=== PATIENT | female | born 1995 | race Caucasian/White ===

== ENCOUNTER → 2016-12-18 | Outpatient (CLI) | payer BC, OTHER ==
[2016-12-18 18:47] LABS: Hepatitis B Surface Ag Index 0.07
[2016-12-18 18:52] LABS: Hepatitis B Core IgM Index 0.02
[2016-12-18 19:04] LABS: Hepatitis C Virus IgG Ab Negative (Negative); Hepatitis C Virus IgG Index 0.03
[2016-12-20 07:53] LABS: HIV-1/HIV-2 Ab Screen NONREAC (NON REAC)
[2016-12-20 10:00] LABS: HSV(PCR) Source Blood - EDTA
== END ==
LOC: LABWHC1 17:12
PROVIDERS: ATTEND Family Medicine
DX: F41.1 Generalized anxiety disorder (principal); Z20.2 Contact with and (suspected) exposure to infections with a predominantly sexual mode of transmission
CPT/HCPCS: 36415; 80074; 86780; 87389; 87529

== ENCOUNTER → 2018-11-27 | Outpatient (CLI) | payer BC ==
[2018-11-27 17:35] LABS: Cholesterol 132 mg/dL (0-200); Glucose 82 mg/dL (70-110); Triglycerides <50.0 mg/dL (0.0-149.0); VLDL Calculation 9.98 mg/dL (5.00-40.00)
== END ==
LOC: LABWHC1 11:45
PROVIDERS: ATTEND Internal Medicine
DX: Z00.00 Encounter for general adult medical examination without abnormal findings (principal)
CPT/HCPCS: 36415; 80061; 82947

== ENCOUNTER 2019-07-11 01:05 | Emergency (ER) | payer BC ==
[2019-07-11 01:14] VITALS: BP 137/79; PULSE 89; RESP 18; TEMP 98.1
[2019-07-11] MEDS ORDERED: ACET/COD 300 MG/30 MG STARTER PACK 6 TAB BTL PO STA (01:23)
[2019-07-11] MEDS ORDERED: CLINDAMYCIN 150 MG CAP PO STA (01:26)
--- NOTE | 2019-07-11 01:26 | ED ---
General Adult HPI - General Chief complaint: Dental/Oral Stated complaint: Dental Time Seen by Provider: 07/11/19 01:18 Source: patient, RN notes reviewed, old records reviewed Mode of arrival: ambulatory Limitations: no limitations - History of Present Illness Initial comments: 23-year-old female patient no pertinent past medical history presents to ED wit hcheif complaint dental pain. Patient for that she has had poor dentition, pain in her teeth the last 5 months and has worsened the last few days. Reports that the pain is worse in the left lower molar region. Denies a chance of being . Denies any other complaints. Systemic: Pt denies fatigue, fever/chills, rash. Pt denies weakness, night sweats, weight loss. Neuro: Pt denies headache, visual disturbances, syncope or pre-syncope. HEENT: Pt denies ocular discharge or irritation, otalgia, rhinorrhea, pharyngitis or notable lymphadenopathy. Cardiopulmonary: Pt denies chest pain, SOB, heart palpitations, dyspnea on exertion. Abdominal/GI: Pt denies abdominal pain, n/v/d. : Pt denies dysuria, burning w/ urination, frequency/urgency. Denies new onset urinary or bowel incontinence. MSK: Pt denies myalgia, loss of strength or function in extremities. Neuro: Pt denies new onset weakness, paresthesias. - Related Data Home Medications Medication Instructions Recorded Confirmed Cyanocobalamin [Vitamin B-12] 500 mcg PO BID 04/21/16 04/21/16 Hydrocodone/Acetaminophen [[place] 1 tab PO Q6HR PRN 04/21/16 04/21/16 5-325] Previous Rx's Medication Instructions Recorded Diazepam [Valium] 5 mg PO BID #6 tab 04/19/16 Ibuprofen [Motrin] 600 mg PO Q6HR PRN #20 tab 04/19/16 Clindamycin [Cleocin] 450 mg PO Q8HR 7 Days capsule 07/11/19 Allergies Allergy/AdvReac Type Severity Reaction Status Date / Time milk Allergy Unknown Verified 07/11/19 01:11 Penicillins Allergy Rash/Hives Verified 07/11/19 01:11 Review of Systems ROS Statement: Those systems with pertinent positive or pertinent negative responses have been documented in the HPI. ROS Other: All systems not noted in ROS Statement are negative. Past Medical History Past Medical History: No Reported History History of Any Multi-Drug Resistant Organisms: None Reported Past Surgical History: Ear Surgery Additional Past Surgical History / Comment(s): left eye surgery, Past Psychological History: Anxiety, Depression Smoking Status: Current every day smoker Past Alcohol Use History: None Reported Past Drug Use History: None Reported General Exam - General Exam Comments Initial Comments: Constitutional: NAD, AOX3, Pt has pleasant affect. HEENT: NC/AT, trachea midline, neck supple, no lymphadenopathy. Posterior pharynx non erythematous, without exudates. External ears appear normal, without discharge. Mucous membranes moist. Eyes PERRLA, EOM intact. There is no scleral icterus. No pallor noted. Poor dentition noted, dental caries noted, mild erythema left lower molar region. No drainable abscess. No fluid collection. Cardiopulmonary: RRR, no murmurs, rubs or gallops, no JVD noted. Lungs CTAB in anterior and posterior pavon. No peripheral edema. Abdominal exam: Abdomen soft and non-distended. Abdomen non-tender to palpation in all 4 quadrants. Bowel sounds active in LLQ. No hepatosplenomegaly. No ecchymosis Neuro: CN II-XII grossly intact. No nuchal rigidity. No raccon eyes, no noe sign, no hemotympanum. No cervical spinal tenderness. MSK: No posterior calf tenderness bilaterally, homans sign negative bilaterally. Posterior tibialis and radial pulse +2 bilaterally. Sensation intact in upper and lower extremities. Full active ROM in upper and lower extremities, 5/5 stregnth. Limitations: no limitations Course Vital Signs 07/11/19 01:11 Temperature 98.1 F Pulse Rate 89 Respiratory 18 Rate Blood Pressure 137/79 O2 Sat by Pulse 96 Oximetry Medical Decision Making - Medical Decision Making 23-year-old female patient presents to ED for chief complaint of dental pain. Patient will signs are stable, afebrile. Physical exam displayed poor dentition, small amount of erythema around left lower molar region. Patient denies any chance of being . Due to penicillin allergy patient will be discharged with clindamycin, also patient follow up with dentist. Case discussed with Dr. Blount. Disposition Clinical Impression: Pain, dental Disposition: HOME SELF-CARE Condition: Stable Instructions (If sedation given, give patient instructions): Toothache (ED) Additional Instructions: Follow-up with primary care provider and dentist tomorrow. Take antibiotics as directed. Return to ER if condition worsens. Prescriptions: Clindamycin [Cleocin] 450 mg PO Q8HR 7 Days capsule Is patient prescribed a controlled substance at d/c from ED?: No Referrals: Maksim Barnett MD [Primary Care Provider] - 1-2 days Trista Cabrera DDS [STAFF PHYSICIAN] - 1-2 days Froylan Dolan DDS [STAFF PHYSICIAN] - 1-2 days Chelo Ochoa DDS [STAFF PHYSICIAN] - 1-2 days
== END 2019-07-11 01:50 | disposition home or self-care (01) ==
LOC: EC 01:05
DX: K08.89 Other specified disorders of teeth and supporting structures (principal); F17.200 Nicotine dependence, unspecified, uncomplicated; Z88.0 Allergy status to penicillin; Z91.011 Allergy to milk products
CPT/HCPCS: 99283

== ENCOUNTER 2019-07-24 14:13 | Emergency (ER) | payer BC ==
--- NOTE | 2019-07-24 15:02 | ED ---
URI HPI - General Chief Complaint: Upper Respiratory Infection Stated Complaint: Cough Time Seen by Provider: 07/24/19 14:55 Source: patient Mode of arrival: ambulatory Limitations: no limitations - History of Present Illness Initial Comments: Patient is a 24-year-old female presenting to the emergency Department with complaints of a cough that has been ongoing for the past month. Patient states her PCP put her on amoxicillin about 2 weeks ago without improvement in her symptoms. Patient states the last 2 days her symptoms have worsened. She is c oughing a lot more and is not able to sleep. She has bodyaches and some mild shortness of breath when she attempts to do things around the house. She has no history of asthma. There are no other complaints at this time. Upon arrival to the ER, vital signs are stable. - Related Data Home Medications Medication Instructions Recorded Confirmed Cyanocobalamin [Vitamin B-12] 500 mcg PO BID 04/21/16 04/21/16 Hydrocodone/Acetaminophen [[place] 1 tab PO Q6HR PRN 04/21/16 04/21/16 5-325] Previous Rx's Medication Instructions Recorded Diazepam [Valium] 5 mg PO BID #6 tab 04/19/16 Ibuprofen [Motrin] 600 mg PO Q6HR PRN #20 tab 04/19/16 Clindamycin [Cleocin] 450 mg PO Q8HR 7 Days capsule 07/11/19 Azithromycin [Zithromax Z-pack] 0 mg PO DIRECTED #1 pack 07/24/19 methylPREDNISolone [Medrol Dose 4 mg PO DIRECTED #1 pack 07/24/19 Pack] Allergies Allergy/AdvReac Type Severity Reaction Status Date / Time milk Allergy Unknown Verified 07/24/19 14:53 Penicillins Allergy Rash/Hives Verified 07/24/19 14:53 Review of Systems ROS Statement: Those systems with pertinent positive or pertinent negative responses have been documented in the HPI. ROS Other: All systems not noted in ROS Statement are negative. Past Medical History Past Medical History: No Reported History History of Any Multi-Drug Resistant Organisms: None Reported Past Surgical History: Ear Surgery Additional Past Surgical History / Comment(s): left eye surgery, Past Psychological History: Anxiety, Depression Smoking Status: Current every day smoker Past Alcohol Use History: None Reported Past Drug Use History: None Reported General Exam - General Exam Comments Initial Comments: GENERAL: Patient appears fatigued, teary eye on exam, coughing a lot HEAD: Atraumatic, normocephalic. EYES: Pupils equal round and reactive to light, extraocular movements intact, sclera anicteric, conjunctiva are normal. ENT: TMs normal, nares patent, oropharynx clear without exudates. Moist mucous membranes. NECK: Normal range of motion, supple without lymphadenopathy or JVD. LUNGS: Mild scattered wheezes, no rales or rhonchi. HEART: Regular rate and rhythm without murmurs, rubs or gallops. ABDOMEN: Soft, nontender, normoactive bowel sounds. No guarding, no rebound. No masses appreciated. : Deferred EXTREMITIES: Normal range of motion, no pitting or edema. No clubbing or cyanosis. NEUROLOGICAL: Normal speech, normal gait. PSYCH: Normal mood, normal affect. SKIN: Warm, Dry, normal turgor, no rashes or lesions noted. Limitations: no limitations Course Vital Signs 07/24/19 07/24/19 07/24/19 14:50 15:59 16:30 Temperature 99.3 F 101.1 F H Pulse Rate 102 H 86 Respiratory 18 21 18 Rate Blood Pressure 131/79 132/88 O2 Sat by Pulse 100 99 Oximetry Medical Decision Making - Medical Decision Making Patient is a 24-year-old female presenting with cough for 1 month with symptoms worsening the last 2 days. Vital signs are stable. Chest x-ray shows left upper lobe pneumonia. Influenza is negative. I discussed these findings with the patient. Patient will be started on azithromycin as well as a short course of steroids. Patient does have an inhaler at home that she can use for shortness of breath and cough. She is in agreement with this plan of care. She is stable for discharge at this time. Case discussed with Dr. Rios. - Lab Data Lab Results 07/24/19 Range/Units 15:15 Influenza Type A RNA Not Detected (Not Detectd) Influenza Type B (PCR) Not Detected (Not Detectd) Disposition Clinical Impression: Pneumonia Disposition: HOME SELF-CARE Condition: Stable Instructions (If sedation given, give patient instructions): Pneumonia (ED) Additional Instructions: Please return to the Emergency Department if symptoms worsen or any other concerns. Take antibiotic as prescribed. Follow-up with PCP in one week. Prescriptions: methylPREDNISolone [Medrol Dose Pack] 4 mg PO DIRECTED #1 pack Azithromycin [Zithromax Z-pack] 0 mg PO DIRECTED #1 pack Is patient prescribed a controlled substance at d/c from ED?: No Referrals: Maksim Barnett MD [Primary Care Provider] - 1-2 days
--- NOTE | 2019-07-24 15:56 | XR ---
EXAMINATION TYPE: XR chest 2V DATE OF EXAM: 07/24/2019 COMPARISON: 12/20/2015 HISTORY: Chest pain TECHNIQUE: FINDINGS: There is some patchy airspace infiltrate left upper lobe. There is no heart failure. Right lung is clear. There is no pleural effusion. Bony thorax is intact. IMPRESSION: Left upper lobe pneumonia is new compared to old exam. Normal heart.
[2019-07-24 16:30] VITALS: BP 132/88; PULSE 86; RESP 18; TEMP 101.1
== END 2019-07-24 16:31 | disposition home or self-care (01) ==
LOC: EC 14:13
DX: J18.9 Pneumonia, unspecified organism (principal); F17.200 Nicotine dependence, unspecified, uncomplicated; Z88.0 Allergy status to penicillin; Z91.011 Allergy to milk products
CPT/HCPCS: 71046; 87502; 99283

== ENCOUNTER 2020-06-17 16:47 | Observation (INO) | payer BC ==
[2020-06-17] MEDS ORDERED: SODIUM CHLORIDE 0.9% 1,000 ML IV STA (16:52)
--- NOTE | 2020-06-17 16:59 | ED ---
Seizure HPI - General Stated Complaint: seizure Time Seen by Provider: 06/17/20 16:47 Source: patient, EMS, RN notes reviewed, old records reviewed Mode of arrival: EMS - History of Present Illness Initial Comments: This is a 24-year-old female with a benign history with respect to seizure or heart disease who is brought in by EMS after apparently suffering a seizure lasting 30-60 seconds prior to arrival. She was noted have left upper lower extremity neuro deficits. She states she felt palpitations in her chest prior to the episode she called for her boyfriend and everything apparently started. No further activity. She now has some movement to her left hand which she did not earlier. No drugs or alcohol reported no fevers chills nausea vomiting sweats. Her last menstrual period was one week ago. She does have a history of left cataract surgery. She doesn't recall when. The patient has no headache no blurry vision no recent illnesses to report No other complaints or modifying factors at this time MD Complaint: seizure - Related Data Home Medications Medication Instructions Recorded Confirmed Cyanocobalamin [Vitamin B-12] 500 mcg PO BID 04/21/16 04/21/16 Hydrocodone/Acetaminophen [[place] 1 tab PO Q6HR PRN 04/21/16 04/21/16 5-325] Previous Rx's Medication Instructions Recorded Ibuprofen [Motrin] 600 mg PO Q6HR PRN #20 tab 04/19/16 diazePAM [Valium] 5 mg PO BID #6 tab 04/19/16 Clindamycin [Cleocin] 450 mg PO Q8HR 7 Days capsule 07/11/19 Azithromycin [Zithromax Z-pack (6 0 mg PO DIRECTED #1 pack 07/24/19 tabs)] methylPREDNISolone [Medrol Dose 4 mg PO DIRECTED #1 pack 07/24/19 Pack] Allergies Allergy/AdvReac Type Severity Reaction Status Date / Time milk Allergy Unknown Verified 07/24/19 14:53 Penicillins Allergy Rash/Hives Verified 07/24/19 14:53 Review of Systems ROS Statement: Those systems with pertinent positive or pertinent negative responses have been documented in the HPI. ROS Other: All systems not noted in ROS Statement are negative. Past Medical History Past Medical History: No Reported History History of Any Multi-Drug Resistant Organisms: None Reported Past Surgical History: Ear Surgery Additional Past Surgical History / Comment(s): left eye surgery, Past Psychological History: Anxiety, Depression Past Alcohol Use History: None Reported Past Drug Use History: None Reported General Exam - General Exam Comments Initial Comments: This is a well-developed well-nourished awake alert oriented 3 female Limitations: physical limitation General appearance: alert, anxious Head exam: Present: atraumatic, normocephalic, normal inspection Eye exam: Present: normal appearance, PERRL, EOMI. Absent: scleral icterus, conjunctival injection, periorbital swelling Pupils: Present: other (Left pupil is dilated compared to the right) ENT exam: Present: normal exam, mucous membranes moist Neck exam: Present: normal inspection, full ROM, other (No stridor JVD or bruits). Absent: tenderness, meningismus, lymphadenopathy Respiratory exam: Present: normal lung sounds bilaterally. Absent: respiratory distress, wheezes, rales, rhonchi, stridor Cardiovascular Exam: Present: regular rate, normal rhythm, normal heart sounds. Absent: systolic murmur, diastolic murmur, rubs, gallop, clicks GI/Abdominal exam: Present: soft, normal bowel sounds. Absent: distended, tenderness, guarding, rebound, rigid Extremities exam: Present: normal inspection, normal capillary refill. Absent: full ROM (Left upper extremity hemiparesis left lower extremity hemiplegia), tenderness, pedal edema, joint swelling, calf tenderness Back exam: Present: normal inspection Neurological exam: Present: alert, oriented X3, CN II-XII intact, motor sensory deficit, other (Decreased sensation of both extremities) Psychiatric exam: Present: normal affect, normal mood Skin exam: Present: warm, dry, intact, normal color. Absent: rash Course Vital Signs 06/17/20 17:03 Temperature 98.2 F Pulse Rate 86 Respiratory 18 Rate Blood Pressure 137/91 O2 Sat by Pulse 99 Oximetry - Reevaluation(s) Reevaluation #1: 06/17/20 18:14 Reevaluation patient by she's had increased mobility to her left upper and lower extremities. Medical Decision Making - Lab Data Result diagrams: 06/17/20 17:00 06/17/20 17:00 Lab Results 06/17/20 06/17/20 06/17/20 Range/Units 17:00 17:00 17:00 WBC 7.5 (3.8-10.6) k/uL RBC 4.26 (3.80-5.40) m/uL Hgb 13.8 (11.4-16.0) gm/dL Hct 39.7 (34.0-46.0) % MCV 93.2 (80.0-100.0) fL MCH 32.4 (25.0-35.0) pg MCHC 34.8 (31.0-37.0) g/dL RDW 12.5 (11.5-15.5) % Plt Count 296 (150-450) k/uL MPV 6.7 Neutrophils % 77 % Lymphocytes % 17 % Monocytes % 3 % Eosinophils % 1 % Basophils % 1 % Neutrophils # 5.7 (1.3-7.7) k/uL Lymphocytes # 1.3 (1.0-4.8) k/uL Monocytes # 0.3 (0-1.0) k/uL Eosinophils # 0.1 (0-0.7) k/uL Basophils # 0.1 (0-0.2) k/uL D-Dimer 0.60 H (<0.60) mg/L FEU Sodium 140 (137-145) mmol/L Potassium 4.1 (3.5-5.1) mmol/L Chloride 109 H (98-107) mmol/L Carbon Dioxide 22 (22-30) mmol/L Anion Gap 9 mmol/L BUN 8 (7-17) mg/dL Creatinine 0.54 (0.52-1.04) mg/dL Est GFR (CKD-EPI)AfAm >90 (>60 ml/min/1.73 sqM) Est GFR (CKD-EPI)NonAf >90 (>60 ml/min/1.73 sqM) Glucose 111 H (74-99) mg/dL Calcium 9.7 (8.4-10.2) mg/dL Magnesium 1.8 (1.6-2.3) mg/dL Total Bilirubin 0.6 (0.2-1.3) mg/dL AST 30 (14-36) U/L ALT 22 (4-34) U/L Alkaline Phosphatase 71 (38-126) U/L Creatine Kinase 79 (30-135) U/L Total Protein 8.0 (6.3-8.2) g/dL Albumin 4.9 (3.5-5.0) g/dL TSH 1.450 (0.465-4.680) mIU/L Serum Alcohol <10 mg/dL - EKG Data -: EKG Interpreted by Me EKG shows normal: sinus rhythm, axis, intervals, QRS complexes, ST-T waves Rate: normal EKG Comments: EKG shows normal sinus rhythm of 83. We'll 180 QRS duration 98 QT since QTC 390/467 - Radiology Data Radiology results: report reviewed (I did review the imaging and reports no evidence of acute neurological findings no evidence of any vascular obstructions.), image reviewed Critical Care Time Critical Care Time: Yes Total Critical Care Time: 31 Critical Care Time: This includes initial presentation with history physical labs x-rays discussed with paramedics regarding the incident. Multiple reevaluation the patient. Discussed with the patient discussed with Dr. Rivera and documentation of the above and admission orders Disposition Clinical Impression: New onset seizure, Shashank's paralysis (postepileptic) Disposition: [facility] Condition: Fair Referrals: Maksim Barnett MD [Primary Care Provider] - 1-2 days
[2020-06-17 17:14] LABS: Basophils # (A) 0.1 k/uL (0-0.2); Basophils % (A) 1 %; Eosinophils # (A) 0.1 k/uL (0-0.7); Eosinophils % (A) 1 %; HCT 39.7 % (34.0-46.0); HGB 13.8 gm/dL (11.4-16.0); Lymphocytes # (A) 1.3 k/uL (1.0-4.8); Lymphocytes % (A) 17 %; MCH 32.4 pg (25.0-35.0); MCHC 34.8 g/dL (31.0-37.0); MCV 93.2 fL (80.0-100.0); Mean Platelet Volume 6.7; Monocytes # (A) 0.3 k/uL (0-1.0); Monocytes % (A) 3 %; Neutrophils # (A) 5.7 k/uL (1.3-7.7); Neutrophils % (A) 77 %; Platelet Count 296 k/uL (150-450); RBC 4.26 m/uL (3.80-5.40); RDW 12.5 % (11.5-15.5); WBC 7.5 k/uL (3.8-10.6)
[2020-06-17 17:25] LABS: ALT 22 U/L (4-34); AST 30 U/L (14-36); African American GFR (CKD) >90 (>60 ml/min/1.73 sqM); Albumin 4.9 g/dL (3.5-5.0); Alcohol <10 mg/dL; Alkaline Phosphatase 71 U/L (38-126); Anion Gap 9 mmol/L; Blood Urea Nitrogen 8 mg/dL (7-17); Calcium 9.7 mg/dL (8.4-10.2); Carbon Dioxide 22 mmol/L (22-30); Chloride 109 mmol/L (98-107); Creatine Kinase 79 U/L (30-135); Glucose 111 mg/dL (74-99); Magnesium 1.8 mg/dL (1.6-2.3); Non-African American GFR(CKD) >90 (>60 ml/min/1.73 sqM); Potassium 4.1 mmol/L (3.5-5.1); Sodium 140 mmol/L (137-145); Total Bilirubin 0.6 mg/dL (0.2-1.3)
--- NOTE | 2020-06-17 17:28 | XR ---
EXAMINATION TYPE: XR chest 1V portable DATE OF EXAM: 06/17/2020 COMPARISON: 07/24/2019 HISTORY: Palpitations. Seizure. TECHNIQUE: FINDINGS: Heart and mediastinum are normal. Lungs are clear. Diaphragm is normal. Bony thorax appears normal. IMPRESSION: Normal chest. There is clearing of the left upper lobe pneumonia compared to old exam.
--- NOTE | 2020-06-17 17:30 | CT ---
EXAMINATION TYPE: CT brain wo con DATE OF EXAM: 06/17/2020 COMPARISON: 04/19/2016 HISTORY: seizure CT DLP: 1061 mGycm Automated exposure control for dose reduction was used. Ventricles have normal size. There is no mass effect nor midline shift. There is no sign of intracran ial hemorrhage. The calvarium is intact. There is no evidence of cerebral edema. There is previous umanzor rgery on the left mastoid sinus. IMPRESSION: Negative CT scan of the brain. No change compared to old exam.
--- NOTE | 2020-06-17 17:50 | CT ---
EXAMINATION TYPE: CT angio head neck DATE OF EXAM: 06/17/2020 COMPARISON: None HISTORY: seizure CT DLP: 484.3 mGycm Automated exposure control for dose reduction was used. CONTRAST: Performed with IV Contrast, patient injected with 65 mL of Isovue 370. There are 3-D post processed images. There is normal branching pattern of the great vessels on the aortic arch. Ascending aorta measures 3 .1 cm. There is arterial flow in both subclavian arteries. There is arterial flow in the common inter nal and external carotid arteries bilaterally. There is arterial flow in both vertebral arteries. The carotid artery bifurcations are widely patent. There is arterial flow in the vertebrobasilar jennifer ry system. There is arterial flow in the anterior middle and posterior cerebral arteries. I see no ev idence of intracranial aneurysm or neovascularity. There is normal contrast opacification of the veno us sinuses. There is no mass effect. There is no sign of hemodynamic stenosis. There is no evidence o f cerebral edema. IMPRESSION: Normal CT angiogram of the brain. Normal CT angiogram of the neck.
[2020-06-17] MEDS ORDERED: levETIRAcetam IV 1,000 MG in SALINE 1 100ML.BAG IVPB STA (17:58)
[2020-06-17] MEDS ORDERED: NALOXONE 0.4 MG/ML 1 ML VIAL IV PRN (18:18)
[2020-06-17 18:20] LABS: Appearance,Urine Clear (Clear); Bilirubin,Urine Negative (Negative); Blood,Urine Negative (Negative); Color,Urine Light Yellow; Glucose,Urine (UA) Negative (Negative); Ketones,Urine Negative (Negative); Leukocyte Esterase,Urine Negative (Negative); Nitrite,Urine Negative (Negative); PH, Urine 6.5 (5.0-8.0); Protein,Urine Negative (Negative); Specific Gravity,Urine 1.023 (1.001-1.035); Urobilinogen,Urine <2.0 mg/dL (<2.0)
[2020-06-17 18:34] LABS: Amphetamine Screen,Urine Not Detected (NotDetected); Barbiturate Screen,Urine Not Detected (NotDetected); Benzodiazepines Screen,Urine Not Detected (NotDetected); Cocaine Screen,Urine Not Detected (NotDetected); Methadone Screen, Urine Not Detected (NotDetected); Opiate Screen,Urine Not Detected (NotDetected); Oxycodone Screen, Urine Not Detected (NotDetected); Phencyclidine Screen,Urine Not Detected (NotDetected); Tricyclic Antidepressant,Urine Not Detected (NotDetected); Urn Cannabinoid Scrn Not Detected (NotDetected)
[2020-06-17] MEDS ORDERED: KETOROLAC 15 MG/ML 1 ML VIAL IVP STA (19:42)
[2020-06-17] MEDS: SODIUM CHLORIDE 0.9% 1,000 ML IV SCH (20:08)
[2020-06-17] MEDS ORDERED: LORazepam 2 MG/ML INJ IV STA (22:06)
[2020-06-17] MEDS: OXYMETAZOLINE 0.05% NASL SPRAY 1 SPRAY BOTTLE NASAL SCH ×2 (22:07→22:19)
[2020-06-18] MEDS ORDERED: KETOROLAC 15 MG/ML 1 ML VIAL ONE (03:26)
[2020-06-18] MEDS: KETOROLAC 15 MG/ML 1 ML VIAL IVP SCH ×2 (03:28→16:20)
[2020-06-18] MEDS ORDERED: ACETAMINOPHEN TAB 500 MG TAB PO PRN (07:42)
--- NOTE | 2020-06-18 11:17 | EEG ---
ELECTROENCEPHALOGRAM REPORT DATE OF SERVICE: 06/18/2020 PREAMBLE: This is a 24-year-old female with new onset seizure. This study is performed to evaluate for any epileptiform activity. EEG FINDINGS: This is a 21 channel routine EEG recording in a patient utilizing 10-20 international system with referential and bipolar montages. Background consists of well developed, well regulated, moderate voltage activity in 12 hertz alpha. Background is posterior dominant and reactive to eye opening and closing. A lot of eye movement artifacts were seen throughout the study. Hyperventilation revealed no abnormalities. Photic driving response was seen with some flash frequencies. Mild drowsiness was seen, but deeper stages of sleep were not attained. No focal or generalized epileptiform activity was seen. EKG channel showed no arrhythmia. IMPRESSION: This is a normal awake and drowsy EEG. No focal, lateralized, or epileptiform activity was seen. MMODL / IJN: [id number] / MTDD
[2020-06-18] MEDS ORDERED: IBUPROFEN 800 MG TAB PO PRN (12:09)
[2020-06-18] MEDS ORDERED: busPIRone HCl 5 MG TAB PO PRN (12:10)
--- NOTE | 2020-06-18 13:32 | P.CNNES ---
History of Present Illness Consult date: 06/18/20 Requesting physician: Hermes Laboy Reason for Consult: New onset seizure History of Present Illness: Patient is a 24-year-old female, came to the hospital yesterday at 4:47 PM by ambulance for seizure. Patient has no previous history of seizures or heart disease. Patient apparently had a seizure lasting 30-60 seconds prior to arrival. She was noted to have left upper and lower extremity neuro deficits. Patient tells me that she does not remember much of details yesterday prior to her seizure. She remembers waking up yesterday morning at 4 AM. She remembers going to work but was sent home, as she was not needed at work. She went to her sister's house where she had a cup of coffee. She went back home. Then she does not remember details. Apparently her boyfriend called the ambulance. Patient does remember that her heart was feeling "funky", which she describes as her "heart pounding more than it should". Patient was noted to have left-sided weakness in the ER. Her vital signs on arrival was blood pressure 137/91, pulse rate 86 temperature 98.2. Chest x-ray showed was normal. There is clearing of the left upper lobe pneumonia compared to old exam. CT head negative. CTA of head and neck normal. EKG showed sinus rhythm with sinus arrhythmia. Blood test shows normal CBC, electrolytes, renal function hepatic panel, TSH and UA. Urine drug screen negative and blood alcohol level negative. Patient takes vitamin D at home. Patient states that she has history of cataract removal in the left eye, and also had glaucoma. Patient states her mother and sister has "blackout seizures". She believes her sister is being treated with medication, but mother is not. She describes her blackout seizures as "passing out with little shaking". Patient has 1 child, 6 years old. She denies any excessive stresses although does feel very tired. She has smoked 1 pack per day since she was age 13. She denies any alcohol or drugs or marijuana use. She works at [employer]. Review of Systems Patient denies headache, double vision or loss of vision. She does have chronic issues with her left eye. Denies any slurred speech or dysphagia. Denies abdominal pain, nausea vomiting diarrhea. Patient complains of weakness and numbness of the left side. Complains of some palpitations previously. Denies chest pain shortness of breath. Patient does feel depressed. All other review of systems unremarkable. Past Medical History Past Medical History: No Reported History Additional Past Medical History / Comment(s): nerve damage bilat fee, glaucoma and cataract in left eye, alopecia History of Any Multi-Drug Resistant Organisms: None Reported Past Surgical History: Ear Surgery Additional Past Surgical History / Comment(s): left eye surgery, Past Anesthesia/Blood Transfusion Reactions: No Reported Reaction Past Psychological History: Anxiety, Depression Smoking Status: Current every day smoker Past Alcohol Use History: None Reported Past Drug Use History: None Reported Medications and Allergies Home Medications Medication Instructions Recorded Confirmed Type Ergocalciferol [Vitamin D2] 50,000 unit PO MO 06/17/20 06/17/20 History Allergies Allergy/AdvReac Type Severity Reaction Status Date / Time milk Allergy Unknown Verified 06/17/20 18:30 Penicillins Allergy Rash/Hives Verified 06/17/20 18:30 Physical Examination - Vital Signs Vital Signs: Vital Signs Temp Pulse Pulse Resp BP BP Pulse Ox 06/18/20 08:00 97.0 F L 72 18 120/76 98 06/18/20 05:00 65 18 06/18/20 04:00 98.7 F 65 18 123/88 98 06/18/20 03:00 97.9 F 72 14 127/88 98 06/17/20 22:02 79 18 142/91 97 06/17/20 18:32 71 18 123/88 98 06/17/20 17:03 98.2 F 86 18 137/91 99 Intake and Output 06/17/20 06/18/20 06/18/20 22:59 06:59 14:59 Other: Voiding Method Toilet Bedpan Weight 86.183 kg On examination patient is a young female, who is very tearful, crying for no reason. She appears depressed. Her speech and language functions are normal. No aphasia or dysarthria. Attention and concentration and fund of knowledge is adequate. On cranial nerve examination her right pupil is round and reacting. Her left pupil is surgical, very dilated, irregular and nonreactive. Visual pavon are full on confrontation. Extraocular muscles are intact with no nystagmus. Face is symmetric, tongue protrudes to the midline, p alatal elevation and sensation normal hearing and shoulder shrug normal. On muscle strength testing the strength is normal in the right arm and right leg. She is diffusely weak about 3+ to 4 in the left arm proximally and distally. Likewise she is very weak distally and proximally in the left lower limb. Reflexes are 1+ and plantars are downgoing bilaterally. Sensory touch produces tingling in the left side of the body. No ataxia for [id number] on the right, cannot perform it on the left. Tone and bulk of muscles normal. Gait deferred. On general examination, there is no carotid bruit, or murmur, S1 and S2 audible, abdomen soft nontender, chest is clear, no peripheral edema. Results - Laboratory Findings CBC and BMP: 06/17/20 17:00 06/17/20 17:00 Abnormal Lab Findings: Abnormal Labs 06/17/20 06/17/20 17:00 17:00 D-Dimer 0.60 H Chloride 109 H Glucose 111 H Assessment and Plan Assessment: * New onset seizure versus syncope. * New onset left hemiparesis, rule out post ictal Shashank's paralysis, CVA versus conversion disorder. * History of left eye cataract surgery and glaucoma. * Tobacco use Plan: * Patient had an EEG performed today, which is normal. No epileptiform activity was seen. * No indication for antiepileptic medication, as this was a first event, and uncertain if it was seizure or syncope. * Stat MRI of the brain to rule out CVA or mass lesion. * Consider cardiac workup, if above neurological workup comes back negative. * Patient informed of [place] state law of no driving, unless seizure free for 6 months, climbing ladders, operate dangerous machinery or unsupervised s wimming. * We will follow. Addendum: MRI of the brain with and without contrast was normal. No evidence of acute stroke or demyelinating disease. EEG was normal. Left hemiparesis uncertain if ? Post ictal Shashank's versus conversion disorder. Patient has been very tearful, crying. Suggest psychiatry consultation to rule out conversion disorder.
--- NOTE | 2020-06-18 14:19 | MR ---
EXAMINATION TYPE: MR brain wo/w con DATE OF EXAM: 06/18/2020 COMPARISON: CT brain yesterday. HISTORY: Left side weakness. Seizure on admission yesterday. TECHNIQUE: Multiplanar, multisequence images of the brain and brainstem is performed without and with IV contras t, utilizing 8.5 mL intravenous Gadavist . FINDINGS: Diffusion weighted images demonstrate no evidence of a recent infarct or other diffusion ab normality. There is no extra-axial fluid collection or significant white matter signal abnormality. The ventricular system and cisternal spaces are normal in size and appearance. The brain volume is age appropriate. Midline structures demonstrate normal morphology. The craniocervical junction appears within normal limits. Post contrast images demonstrate no abnormal enhancement. The dural venous sinuses appear pa tent. Mild to moderate mucosal thickening in the left maxillary sinus. [id number] mucosal thick ening in ethmoid sinuses bilaterally. Mild mucosal thickening of bilateral frontal sinuses. Some depe ndent fluid in the left sphenoid sinus with mild mucosal thickening anteriorly. Left lens is not well seen. Correlate clinically. Increased signal corresponding to prior surgery at level of left mastoid is noted. IMPRESSION: No MRI evidence for a recent infarct. No significant white matter changes. No suspicious postcontrast enhancement.
[2020-06-18] MEDS: OXYMETAZOLINE 0.05% NASL SPRAY 1 SPRAY BOTTLE NASAL SCH (15:02)
[2020-06-18] MEDS: SODIUM CHLORIDE 0.9% 1,000 ML IV SCH (16:42)
[2020-06-18] MEDS ORDERED: BUTALB/APAP/CAFF 50-325-40MG TAB PO PRN (17:17)
[2020-06-18] MEDS ORDERED: SODIUM CHLORIDE 0.65% NASAL SPRAY 44 ML BTL NASAL PRN (17:29)
--- NOTE | 2020-06-18 17:53 | HP ---
HISTORY AND PHYSICAL CHIEF COMPLAINT: Seizure and left hemiparesis. HISTORY OF PRESENT ILLNESS: This is the first known admission for this 24-year-old white female. She was brought to the emergency room after she apparently had a grand mal seizure and presented with left upper and left lower extremity weakness which slowly was receding while she was in the emergency room. She had no headache, diplopia, etc. She has had no history of head injury, meningitis, previous seizures, etc. She denies drug use. She denies stress. She did not have incontinence of stool or urine. REVIEW OF SYSTEMS: She has had no change in the vision or hearing, chest pain, shortness of breath, cough, hemoptysis, hypertension, murmurs, rheumatic fever, orthopnea, PND, abdominal pain, nausea, vomiting, hematemesis, melena, hematochezia, jaundice, hepatitis, cirrhosis, hematuria frequency, urgency, incontinence, renal failure, diabetes, etc. She has had no history of migraines. Past medical history, family history, and personal and social histories reveal that she is ALLERGIC to PENICILLIN and she only uses a Symbicort inhaler occasionally. She has had some problems with anxiety and depression in the past. She does smoke. She does not drink. She has a negative family history for seizures. PHYSICAL EXAMINATION: Blood pressure 118/70, pulse 82, respirations of 18. She is afebrile. In general she appeared to be well developed, well nourished, and in no acute distress, but she was anxious. Head, ears, eyes, nose, mouth and throat were normal. Neck veins were not distended. Thyroid was not enlarged. The chest was clear. Cardiac exam was normal. Abdomen was soft, nontender. Extremities were normal. Cranial nerves were intact. Neck was supple. Pupils were equal, round and reactive and gaze was conjugate. She did have some residual weakness in the left upper and left lower extremities. She is admitted to the hospital with the diagnosis: New grand mal seizure disorder with left hemiparesis. PLAN: 1. Bedrest. 2. IV fluids. 3. Frequent monitoring of her neurologic status and vital signs. 4. Neurology consult. 5. MRI with gadolinium. 6. Consider further workup pending outcome of first studies. MMODL / IJN: [id number] /
[2020-06-18] MEDS ORDERED: ERGOCALCIFEROL 50,000 UNIT CAP PO SCH (18:00)
[2020-06-18] MEDS ORDERED: traZODone HCL 50 MG TAB PO PRN (19:08)
[2020-06-19 05:20] VITALS: RESP 16
[2020-06-19 07:56] VITALS: BP 106/61; PULSE 73; TEMP 97.7
--- NOTE | 2020-06-19 18:34 | PN ---
PROGRESS NOTE DATE OF SERVICE: 06/18/2020 CHIEF COMPLAINT: Left hemiparesis and seizure. HISTORY OF PRESENT ILLNESS: This lady is doing well. She is really completely recovered neurologically. She has been seen by Neurology. All studies have been negative so far. PHYSICAL EXAMINATION: Right pupil is normal. The left is surgically altered. Chest is clear. Cardiac exam is normal. Abdomen is soft, nontender. Neurologically she is back intact. IMPRESSION: New-onset seizure with left hemiparesis. PLAN: Progress activity and diet. Under the circumstances, it looks as though that this may not be a vargas haydee seizure. MMODL / IJN: [id number] /
--- NOTE | 2020-06-19 18:53 | P.PN ---
Subjective Progress Note Date: 06/19/20 Late entry Patient was seen earlier before her discharge. Patient appeared more comfortable, less teary-eyed. States her left-sided getting better. Numbness has resolved and weakness is also improved Objective - Vital Signs Vital signs: Vital Signs Temp 97.7 F 06/19/20 07:55 Pulse 73 06/19/20 07:55 Resp 16 06/19/20 08:00 BP 106/61 06/19/20 07:55 Pulse Ox 98 06/19/20 07:55 Intake & Output 06/18/20 06/19/20 06/19/20 18:59 06:59 18:59 Intake Total 357 240 Output Total 1600 Balance 357 -1360 Weight 87.5 kg Intake: Oral 357 240 Output: Urine 1600 Other: Voiding Method Bedpan Bedpan Bedpan # Voids 1 2 # Bowel Movements 0 - Exam Patient states that she can move her left arm and left leg better. However showing me only that she can wiggle her toes and hands and feet. However on checking, she appears to be fairly normal strength about 5-to 4+. Very inconsistent response suggestive of functional weakness pattern. Sensations are equal bilaterally. Tone and bulk of muscles normal. No Babinski's - Labs CBC & Chem 7: 06/17/20 17:00 06/17/20 17:00 Assessment and Plan Assessment: * New onset seizure versus syncope. * New onset left hemiparesis, probable conversion disorder. * History of left eye cataract surgery and glaucoma. * Tobacco use Plan: * EEG was normal. No epileptiform activity was seen. * No indication for antiepileptic medication, as this was a first event, and uncertain if it was seizure or syncope. * MRI of brain with and without contrast normal. No evidence of acute CVA or demyelinating disease. * Consider cardiac workup, if above neurological workup comes back negative. * Patient informed of [place] state law of no driving, unless seizure free for 6 months, climbing ladders, operate dangerous machinery or unsupervised swimming. * Neurologically clear for discharge.
--- NOTE | 2020-06-19 19:34 | DS ---
DISCHARGE SUMMARY CHIEF COMPLAINT: Seizure and left hemiparesis. HISTORY OF PRESENT ILLNESS AND PHYSICAL EXAMINATION: Details of this lady's history and physical can be found in the initial workup. LABORATORY STUDIES: While she was in the hospital she had laboratory studies, details of which can be found in the laboratory section of her chart. COURSE IN THE HOSPITAL: After admission she was placed on bedrest, started on intravenous fluids and seizure precautions. She was seen by Neurology. MRI was normal, as was her CT. She fully recovered while in the hospital. Her EEG was normal. There was a question as to whether or not this was a real event. She was stable and it was felt that she could go home. She will go home on her usual diet, activity and no medication, and she will be followed up in the office. FINAL DIAGNOSIS: Seizure and left hemiparesis. OPERATIONS: None. CONSULTATION: Neurology. She is improved. MMLAQUITAL / RAYMOND: [id number] /
[2020-06-21] MEDS ORDERED: IBUPROFEN 800 MG TAB PO PRN (09:00)
== END 2020-06-19 14:55 | disposition home or self-care (01) ==
LOC: EC 16:47 → 3SCARD 18:18
PROVIDERS: ADMIT Family Medicine; ATTEND Family Medicine
DX: G40.409 Other generalized epilepsy and epileptic syndromes, not intractable, without status epilepticus (principal); G81.94 Hemiplegia, unspecified affecting left nondominant side; R00.2 Palpitations; F32.9 Major depressive disorder, single episode, unspecified; F41.9 Anxiety disorder, unspecified; H40.9 Unspecified glaucoma; F17.210 Nicotine dependence, cigarettes, uncomplicated; L65.9 Nonscarring hair loss, unspecified; Z79.51 Long term (current) use of inhaled steroids; Z88.0 Allergy status to penicillin; Z91.011 Allergy to milk products; Z87.01 Personal history of pneumonia (recurrent); Z98.890 Other specified postprocedural states; Z98.42 Cataract extraction status, left eye
CPT/HCPCS: 96376; 96365; 96375; 99291; 36415; 95816; 93005; 85379; 80053; 84443; 82550; 83735; 85025; 81003; 81025; 80306; 80320; 71045; 70496; 70450; 70498; 70553; G0378 ×3; J2060; J1885 ×2; J1953; A9585; Q9967

== ENCOUNTER 2020-06-20 01:00 | Emergency (ER) | payer BC ==
[2020-06-20 01:09] VITALS: TEMP 98.1
--- NOTE | 2020-06-20 01:26 | ED ---
Chest Pain HPI - General Chief Complaint: Chest Pain Stated Complaint: chest pain Time Seen by Provider: 06/20/20 01:06 Source: patient Mode of arrival: EMS - History of Present Illness MD Complaint: chest pain -: hour(s) Onset: during rest Pain Location: substernal Pain Radiation: back Severity: severe Quality: sharp Consistency: now resolved Improves With: nothing Worsens With: nothing Treatments Prior to Arrival: none - Related Data Home Medications Medication Instructions Recorded Confirmed Ergocalciferol [Vitamin D2 50,000 unit PO MO 06/17/20 06/17/20 (DRISDOL)] Allergies Allergy/AdvReac Type Severity Reaction Status Date / Time milk Allergy Unknown Verified 06/20/20 01:04 Penicillins Allergy Rash/Hives Verified 06/20/20 01:04 Review of Systems ROS Statement: Those systems with pertinent positive or pertinent negative responses have been documented in the HPI. ROS Other: All systems not noted in ROS Statement are negative. Constitutional: Denies: fever, chills Respiratory: Denies: cough, dyspnea Cardiovascular: Reports: as per HPI, chest pain. Denies: palpitations Gastrointestinal: Denies: abdominal pain, nausea, vomiting Genitourinary: Denies: dysuria, hematuria Musculoskeletal: Denies: back pain Skin: Denies: rash EKG Findings - EKG Results: EKG: interpreted by JUDY, sinus rhythm (Rate 81 bpm), normal axis, normal QRS, normal ST/T, no acute changes - NH, Pacemaker, Normal: Normal tracing: normal tracing Past Medical History Past Medical History: No Reported History Additional Past Medical History / Comment(s): nerve damage bilat fee, glaucoma and cataract in left eye, alopecia. recent admission for seizure History of Any Multi-Drug Resistant Organisms: None Reported Past Surgical History: Ear Surgery Additional Past Surgical History / Comment(s): left eye surgery, Past Anesthesia/Blood Transfusion Reactions: No Reported Reaction Past Psychological History: Anxiety, Depression Smoking Status: Current every day smoker Past Alcohol Use History: None Reported Past Drug Use History: None Reported General Exam General appearance: alert, in no apparent distress Head exam: Present: atraumatic, normocephalic Eye exam: Present: normal appearance. Absent: EOMI (There is anisocoria) Neck exam: Present: normal inspection Respiratory exam: Present: normal lung sounds bilaterally. Absent: respiratory distress, wheezes, rales, rhonchi, stridor Cardiovascular Exam: Present: regular rate, normal rhythm, normal heart sounds. Absent: systolic murmur, diastolic murmur, rubs, gallop GI/Abdominal exam: Present: soft. Absent: distended, tenderness, guarding, rebound, rigid, mass Extremities exam: Present: normal inspection, normal capillary refill. Absent: pedal edema, calf tenderness Back exam: Present: normal inspection. Absent: CVA tenderness (R), CVA tend erness (L) Neurological exam: Present: alert Skin exam: Present: warm, dry, intact, normal color. Absent: rash Course Vital Signs 06/20/20 06/20/20 06/20/20 01:04 01:09 02:22 Temperature 98.1 F Pulse Rate 83 87 Pulse Rate [ 93 [employer] ] Respiratory 19 20 Rate Blood Pressure 153/98 127/80 O2 Sat by Pulse 98 95 Oximetry Disposition Clinical Impression: Chest pain Disposition: HOME SELF-CARE Condition: Good Instructions (If sedation given, give patient instructions): Chest Pain (ED) Is patient prescribed a controlled substance at d/c from ED?: No Referrals: Maksim Barnett MD [Primary Care Provider] - 1-2 days
[2020-06-20 01:46] LABS: Basophils # (A) 0.2 k/uL (0-0.2); Basophils % (A) 2 %; Eosinophils # (A) 0.1 k/uL (0-0.7); Eosinophils % (A) 1 %; HCT 41.2 % (34.0-46.0); HGB 13.8 gm/dL (11.4-16.0); Lymphocytes # (A) 2.3 k/uL (1.0-4.8); Lymphocytes % (A) 25 %; MCH 31.3 pg (25.0-35.0); MCHC 33.6 g/dL (31.0-37.0); MCV 93.3 fL (80.0-100.0); Mean Platelet Volume 7.3; Monocytes # (A) 0.6 k/uL (0-1.0); Monocytes % (A) 6 %; Neutrophils % (A) 64 %; Platelet Count 340 k/uL (150-450); RBC 4.42 m/uL (3.80-5.40); RDW 12.3 % (11.5-15.5); WBC 9.3 k/uL (3.8-10.6)
--- NOTE | 2020-06-20 01:50 | XR ---
EXAM: XR Chest, 2 Views CLINICAL HISTORY: ITS.REASON XR Reason: Chest Pain TECHNIQUE: Frontal and lateral views of the chest. COMPARISON: CXR 06/17/20 FINDINGS: Lungs: Unremarkable. No consolidation. Pleural space: Unremarkable. No pleural effusion or pneumothorax. Heart: Unremarkable. No cardiomegaly or pulmonary vascular congestion. Mediastinum: Unremarkable. Bones/joints: Unremarkable. IMPRESSION: No evidence of acute cardiopulmonary disease.
[2020-06-20 02:07] LABS: ALT 16 U/L (4-34); AST 19 U/L (14-36); African American GFR (CKD) >90 (>60 ml/min/1.73 sqM); Albumin 4.6 g/dL (3.5-5.0); Alkaline Phosphatase 72 U/L (38-126); Anion Gap 9 mmol/L; Blood Urea Nitrogen 8 mg/dL (7-17); Calcium 9.7 mg/dL (8.4-10.2); Carbon Dioxide 23 mmol/L (22-30); Chloride 107 mmol/L (98-107); Glucose 102 mg/dL (74-99); Magnesium 1.8 mg/dL (1.6-2.3); Non-African American GFR(CKD) >90 (>60 ml/min/1.73 sqM); Potassium 3.8 mmol/L (3.5-5.1); Sodium 139 mmol/L (137-145); Total Bilirubin 0.5 mg/dL (0.2-1.3); Total Protein 7.7 g/dL (6.3-8.2)
[2020-06-20 02:10] LABS: Partial Thromboplastin Time 24.3 sec (22.0-30.0); Prothrombin Time 10.1 sec (9.0-12.0)
[2020-06-20] MEDS ORDERED: MAG HYDROX/AL HYDROX/SIMETH 30 ML, HYOSCYAMINE ELIXIR 10 ML, LIDOCAINE VISCOUS 2% 10 ML PO STA ×3 (02:16)
[2020-06-20 02:36] LABS: D-Dimer 1.14 mg/L FEU (<0.60)
--- NOTE | 2020-06-20 03:15 | CT ---
EXAM: CT Angiography Chest With Intravenous Contrast CLINICAL HISTORY: ITS.REASON CT Reason: chest pain TECHNIQUE: Axial computed tomographic angiography images of the chest with intravenous contrast. CTDI is 24.67 mGy and DLP is 678.1 mGy-cm. This CT exam was performed using one or more of the following dose reduction techniques: automated exposure control, adjustment of the mA and/or kV according to patient size, and/or use of iterative reconstruction technique. MIP reconstructed images were created and reviewed. COMPARISON: correlation is made with chest x-ray performed on same date FINDINGS: Pulmonary arteries: Limited evaluation of the pulmonary arteries to the lobar pulmonary arteries secondary to phase of contrast and field of view. Aorta: No acute findings. No thoracic aortic aneurysm. Lungs: Unremarkable. No mass. No consolidation. Pleural space: Unremarkable. No significant effusion. No pneumothorax. Heart: Unremarkable. No cardiomegaly. No significant pericardial effusion. No evidence of RV dysfunction. Bones/joints: No acute fracture. No dislocation. Soft tissues: Unremarkable. Lymph nodes: Unremarkable. No enlarged lymph nodes. IMPRESSION: 1. No pulmonary embolism to the level of the lobar pulmonary arteries. 2. No aortic dissection. No thoracic aortic aneurysm. 3. No consolidations, effusions or pneumothorax.
[2020-06-20] MEDS ORDERED: HYDROcodone/APAP 5-325MG 1 EACH TAB PO STA (03:25)
[2020-06-20 03:55] VITALS: BP 122/78; PULSE 73; RESP 16
== END 2020-06-20 03:40 | disposition home or self-care (01) ==
LOC: EC 01:00
DX: R07.89 Other chest pain (principal); F17.200 Nicotine dependence, unspecified, uncomplicated; Z88.0 Allergy status to penicillin; Z91.011 Allergy to milk products
CPT/HCPCS: 36415; 93005; 85379; 80053; 83735; 84484; 85025; 85610; 85730; 71046; 71275; 99285; Q9967

== ENCOUNTER → 2022-11-25 | Outpatient (CLI) | payer BC ==
[2022-11-25 19:29] LABS: Gliadin AB IgG, Deaminated NEGATIVE (NEGATIVE); Gliadin AB IgG, Unit <0.4 U/mL
[2022-11-25 21:22] LABS: Gliadin AB IgA, Deaminated NEGATIVE (NEGATIVE); Gliadin AB IgA, Unit 2.8 U/mL
== END | disposition home or self-care (01) ==
LOC: LABWHC1 10:02
PROVIDERS: ATTEND Nurse Practitioner Family
DX: K59.09 Other constipation (principal)
CPT/HCPCS: 36415; 83516; 85652; 86140

== ENCOUNTER 2023-01-19 19:16 | Emergency (ER) | payer OTHER, BC ==
[2023-01-19 19:46] VITALS: RESP 18
--- NOTE | 2023-01-19 20:09 | XR ---
EXAMINATION TYPE: XR foot complete RT DATE OF EXAM: 01/19/2023 8:04 PM INDICATION: Patient age:Female; 27 years old; Reason for study: Pain; PHH. COMPARISON: None TECHNIQUE: The right foot was examined in the AP, oblique, and lateral projections. FINDINGS: No evidence of any acute osseous pathology. No evidence of soft tissue swelling. Joints are preserve d. IMPRESSION: No evidence of acute fracture.
--- NOTE | 2023-01-19 21:47 | ED ---
General Adult HPI - General Chief complaint: Extremity Injury, Lower Stated complaint: Right foot injury Time Seen by Provider: 01/19/23 20:58 Source: patient, RN notes reviewed Mode of arrival: ambulatory Limitations: no limitations - History of Present Illness Initial comments: 27-year-old female presents to the emergency department with chief complaint of right foot and toe pain after dropping something on her foot at work. She states that this happened about 14 hours ago. She reports that she continued working following the injury and attributed the pain to her "nerve damage" in her feet. Patient states that she has pain with extending her toes mostly in her first digit. Denies numbness, tingling. - Related Data Home Medications Medication Instructions Recorded Confirmed Bimatoprost [Lumigan 0.01% Ophth 1 drop LEFT EYE HS 01/19/23 01/19/23 Soln] Ibuprofen [Motrin Ib] 800 mg PO Q8H PRN 01/19/23 01/19/23 Venlafaxine HCl [Effexor XR] 37.5 mg PO HS 01/19/23 01/19/23 Allergies Allergy/AdvReac Type Severity Reaction Status Date / Time milk Allergy Unknown Verified 01/19/23 21:33 Penicillins Allergy Rash/Hives Verified 01/19/23 21:33 Review of Systems ROS Statement: Those systems with pertinent positive or pertinent negative responses have been documented in the HPI. ROS Other: All systems not noted in ROS Statement are negative. Past Medical History Past Medical History: No Reported History Additional Past Medical History / Comment(s): nerve damage bilat fee, glaucoma and cataract in left eye, alopecia. recent admission for seizure History of Any Multi-Drug Resistant Organisms: None Reported Past Surgical History: Ear Surgery Additional Past Surgical History / Comment(s): left eye surgery, Past Anesthesia/Blood Transfusion Reactions: No Reported Reaction Past Psychological History: Anxiety, Depression Smoking Status: Current every day smoker Past Alcohol Use History: None Reported Past Drug Use History: None Reported General Exam Limitations: no limitations General appearance: alert, in no apparent distress Head exam: Present: atraumatic, normocephalic, normal inspection ENT exam: Present: normal exam, mucous membranes moist Neck exam: Present: normal inspection. Absent: tenderness, meningismus, lymphadenopathy Respiratory exam: Present: normal lung sounds bilaterally. Absent: respiratory distress, wheezes, rales, rhonchi, stridor Cardiovascular Exam: Present: regular rate, normal rhythm, normal heart sounds. Absent: systolic murmur, diastolic murmur, rubs, gallop, clicks Extremities exam: Present: tenderness (First digit of the right foot), normal capillary refill, other (DP and PT pulses 2+). Absent: full ROM (Mild decreased extension of the toes), pedal edema, joint swelling, calf tenderness Back exam: Present: normal inspection Neurological exam: Present: alert, oriented X3 Psychiatric exam: Present: normal affect, normal mood Skin exam: Present: warm, dry, intact, normal color. Absent: rash Course Vital Signs 01/19/23 01/19/23 19:44 21:50 Temperature 99.2 F 98.4 F Pulse Rate 86 82 Respiratory 18 18 Rate Blood Pressure 147/89 132/74 O2 Sat by Pulse 97 99 Oximetry Medical Decision Making - Medical Decision Making Was pt. sent in by a medical professional or institution (, JOHNNIE, SIDING MECHANIC, urgent care, hospital, or detention...) When possible be specific @ -No Did you speak to anyone other than the patient for history (EMS, parent, family, police, friend...)? What history was obtained from this source @ -No Did you review nursing and triage notes (agree or disagree)? Why? @ -I reviewed and agree with nursing and triage notes Were old charts reviewed (outside hosp., previous admission, EMS record, old EKG, old radiological studies, urgent care reports/EKG's, detention records)? Report findings @ -No old charts were reviewed Differential Diagnosis (chest pain, altered mental status, abdominal pain women, abdominal pain men, vaginal bleeding, weakness, fever, dyspnea, syncope, headache, dizziness, GI bleed, back pain, seizure, CVA, palpatations, mental health, musculoskeletal)? @ -Differential Musculoskeletal Muscular strain, contusion, ligament sprain, fracture, arthritis, septic arthritis, bursitis, cellulitis, muscle spasm, nerve compression, DVT, arterial occlusion, herpes zoster, electrolyte abnormality, tumor.... This is not meant to be in all inclusive list EKG interpreted by me (3pts min.). @ -none X-rays interpreted by me (1pt min.). @ -XR of the right foot showed no evidence for acute fracture CT interpreted by me (1pt min.). @ -None done U/S interpreted by me (1pt. min.). @ -None done What testing was considered but not performed or refused? (CT, X-rays, U/S, labs)? Why? @ -None What meds were considered but not given or refused? Why? @ -None Did you discuss the management of the patient with other professionals (professionals i.e. Dr., PA, SIDING MECHANIC, lab, RT, psych nurse, social media job titles, exhibit cleaner, teacher, protocol officer, case finisher)? Give summary @ -No Was smoking cessation discussed for >3mins.? @ -No Was critical care preformed (if so, how long)? @ -No Were there social determinants of health that impacted care today? How? (Homelessness, low income, unemployed, alcoholism, drug addiction, transportation, low edu. Level, literacy, decrease access to med. care, intermediate, rehab)? @ -No Was there de-escalation of care discussed even if they declined (Discuss DNR or withdrawal of care, Hospice)? DNR status @ -No What co-morbidities impacted this encounter? (DM, HTN, Smoking, COPD, CAD, Cancer, CVA, ARF, Chemo, Hep., AIDS, mental health diagnosis, sleep apnea, morbid obesity)? @ -None Was patient admitted / discharged? Hospital course, mention meds given and route, prescriptions, significant lab abnormalities, going to OR and other pertinent info. @ -Discharged. Patient presented to the emergency department for chief complaint of right foot pain after an object at work fell on it. XR obtained showed no evidence for acute fracture. Patient neurovascularly intact. Foot wrapped with hermes bandage at patients request. Patient stable at time of discharge. Case discussed with my attending, Dr. Montiel. Undiagnosed new problem with uncertain prognosis? @ -No Drug Therapy requiring intensive monitoring for toxicity (Heparin, Nitro, Insulin, Cardizem)? @ -No Were any procedures done? @ -No Diagnosis/symptom? @ -foot contusion Acute, or Chronic, or Acute on Chronic? @ -acute Uncomplicated (without systemic symptoms) or Complicated (systemic symptoms)? @ -uncomplicated Side effects of treatment? @ -No Exacerbation, Progression, or Severe Exacerbation? @ -No Poses a threat to life or bodily function? How? (Chest pain, [place], [place], pneumonia, PE, COPD, DKA, ARF, appy, cholecystitis, CVA, Diverticulitis, Homicidal, Suicidal, threat to staff... and all critical care pts) @ -No Disposition Clinical Impression: Contusion of foot, right Disposition: HOME SELF-CARE Condition: Stable Instructions (If sedation given, give patient instructions): Foot Contusion (ED) Additional Instructions: Please return to the emergency department for new or worsening symptoms. Is patient prescribed a controlled substance at d/c from ED?: No Referrals: Sagrario Hassan MD [Primary Care Provider] - 1-2 days Time of Disposition: 21:48
[2023-01-19 21:51] VITALS: BP 132/74; PULSE 82; TEMP 98.4
== END 2023-01-19 21:50 | disposition home or self-care (01) ==
LOC: EC 19:16
DX: S90.31XA Contusion of right foot, initial encounter (principal); F41.9 Anxiety disorder, unspecified; F32.A Depression, unspecified; F17.200 Nicotine dependence, unspecified, uncomplicated; Z88.0 Allergy status to penicillin; Z91.011 Allergy to milk products; Z79.899 Other long term (current) drug therapy; W20.8XXA Other cause of strike by thrown, projected or falling object, initial encounter; Y99.0 Civilian activity done for income or pay
CPT/HCPCS: 99283

== ENCOUNTER 2023-06-15 16:02 | Emergency (ER) | payer BC ==
--- NOTE | 2023-06-15 16:20 | ED ---
ENT HPI - General Stated complaint: dental pain Time Seen by Provider: 06/15/23 16:19 Source: patient, RN notes reviewed - History of Present Illness Initial comments: Patient is a 27-year-old female presented ER chief complaint of dental pain. Patient was recently treated outpatient with clindamycin and states it is not improved. She states she has had this pain for about 2 weeks now. She now reports that the pain is traveling into her lower jaw and neck. Patient endorses recent chills and hot flashes. Patient denies any chest pain or shortness of breath or difficulty swallowing. - Related Data Home Medications Medication Instructions Recorded Confirmed Bimatoprost [Lumigan 0.01% Ophth 1 drop LEFT EYE HS 01/19/23 01/19/23 Soln] Ibuprofen [Motrin Ib] 800 mg PO Q8H PRN 01/19/23 01/19/23 Venlafaxine HCl [Effexor XR] 37.5 mg PO HS 01/19/23 01/19/23 Allergies Allergy/AdvReac Type Severity Reaction Status Date / Time milk Allergy Unknown Verified 06/15/23 16:39 Penicillins Allergy Rash/Hives Verified 06/15/23 16:39 Review of Systems ROS Statement: Those systems with pertinent positive or pertinent negative responses have been documented in the HPI. ROS Other: All systems not noted in ROS Statement are negative. Past Medical History Past Medical History: No Reported History Additional Past Medical History / Comment(s): nerve damage bilat fee, glaucoma and cataract in left eye, alopecia. recent admission for seizure History of Any Multi-Drug Resistant Organisms: None Reported Past Surgical History: Ear Surgery Additional Past Surgical History / Comment(s): left eye surgery, Past Anesthesia/Blood Transfusion Reactions: No Reported Reaction Past Psychological History: Anxiety, Depression Smoking Status: Current every day smoker Past Alcohol Use History: None Reported Past Drug Use History: None Reported General Exam - General Exam Comments Initial Comments: Visual Physical Exam Vital signs reviewed General: Well-appearing, nontoxic, no acute distress. Head: Normocephalic, atraumatic Eyes: PERRLA, EOMI ENT: Airway patent Chest: Nonlabored breathing Skin: No visual rash, normal skin tone Neuro: Alert and oriented 3 Musculoskeletal: No gross abnormalities General appearance: alert, in no apparent distress, other (Uncomfortable/in pain) Head exam: Present: atraumatic, normocephalic, normal inspection ENT exam: Present: mucous membranes moist, other (Right lower molar is broken. There is surrounding erythema and edema. Tenderness to right jaw and right TMJ. edema to right cheek) Neck exam: Present: normal inspection, tenderness (Submandibular lymph nodes). Absent: meningismus, lymphadenopathy Respiratory exam: Present: normal lung sounds bilaterally. Absent: respiratory distress, wheezes, rales, rhonchi, stridor Cardiovascular Exam: Present: regular rate, normal rhythm, normal heart sounds. Absent: systolic murmur, diastolic murmur, rubs, gallop, clicks Neurological exam: Present: alert, oriented X3, CN II-XII intact Psychiatric exam: Present: normal affect, normal mood Skin exam: Present: warm, dry, intact, normal color. Absent: rash Course Vital Signs 06/15/23 16:37 Temperature 98.6 F Pulse Rate 83 Respiratory 16 Rate Blood Pressure 164/84 O2 Sat by Pulse 100 Oximetry Medical Decision Making - Medical Decision Making Was pt. sent in by a medical professional or institution (Dr. PA, HOUSEHOLD MANAGER, urgent care, hospital, or senior living...) When possible be specific @ -No Did you speak to anyone other than the patient for history (EMS, parent, family, police, friend...)? What history was obtained from this source @ -No Did you review nursing and triage notes (agree or disagree)? Why? @ -I reviewed and agree with nursing and triage notes Were old charts reviewed (outside hosp., previous admission, EMS record, old EKG, old radiological studies, urgent care reports/EKG's, senior living records)? Report findings @ -No old charts were reviewed Differential Diagnosis (chest pain, altered mental status, abdominal pain women, abdominal pain men, vaginal bleeding, weakness, fever, dyspnea, syncope, headache, dizziness, GI bleed, back pain, seizure, CVA, palpatations, mental health, musculoskeletal)? @ -Dental Marilynn, abscess, retropharyngeal abscess, broken tooth. EKG interpreted by me (3pts min.). @ -None X-rays interpreted by me (1pt min.). @ -None done CT interpreted by me (1pt min.). @ -CT soft tissue neck shows no evidence of organizing fluid collection suggest abscess. Periodontal disease versus within the bilateral molars. U/S interpreted by me (1pt. min.). @ -None done What testing was considered but not performed or refused? (CT, X-rays, U/S, labs)? Why? @ -None What meds were considered but not given or refused? Why? @ -None Did you discuss the management of the patient with other professionals (professionals i.e. DrLucy, PA, HOUSEHOLD MANAGER, lab, RT, psych nurse, social work case manager, handle bar assembler, teacher, special officer, case assembler)? Give summary @ -No Was smoking cessation discussed for >3mins.? @ -No Was critical care preformed (if so, how long)? @ -No Were there social determinants of health that impacted care today? How? (Homelessness, low income, unemployed, alcoholism, drug addiction, transportation, low edu. Level, literacy, decrease access to med. care, senior living, rehab)? @ -No Was there de-escalation of care discussed even if they declined (Discuss DNR or withdrawal of care, Hospice)? DNR status @ -No What co-morbidities impacted this encounter? (DM, HTN, Smoking, COPD, CAD, [place], CVA, ARF, Chemo, Hep., AIDS, mental health diagnosis, sleep apnea, morbid obesity)? @ -None Was patient admitted / discharged? Hospital course, mention meds given and route, prescriptions, significant lab abnormalities, going to OR and other pertinent info. @ -Discharge. Patient is a 27-year-old female presented ER with chief complaint of dental pain. On examination there are multiple broken teeth and dental caries noted. Labs obtained in the ER were unimpressive. CT soft tissue neck shows no evidence for organizing fluid collection suggest abscess. Peridental disease versus within bilateral molars. Patient will be discharged with a [place] starter pack for pain. I discussed with the patient return parameters I also advised patient to follow-up with dentistry as soon as possible. I discussed with patient to continue clindamycin. Patient be discharged in stable condition with follow-up to PCP and dentist. Patient expressed understanding and agreement with care plan. Undiagnosed new problem with uncertain prognosis? @ -No Drug Therapy requiring intensive monitoring for toxicity (Heparin, Nitro, Insulin, Cardizem)? @ -No Were any procedures done? @ -No Diagnosis/symptom? @ -Dental pain Acute, or Chronic, or Acute on Chronic? @ -Acute Uncomplicated (without systemic symptoms) or Complicated (systemic symptoms)? @ -Uncomplicated Side effects of treatment? @ -No Exacerbation, Progression, or Severe Exacerbation? @ -No Poses a threat to life or bodily function? How? (Chest pain, [place], [place], pneumonia, PE, COPD, DKA, ARF, appy, cholecystitis, CVA, Diverticulitis, Homicidal, Suicidal, threat to staff... and all critical care pts) @ -No - Lab Data Result diagrams: 06/15/23 17:59 06/15/23 17:59 Lab Results 06/15/23 06/15/23 06/15/23 Range/Units 17:59 17:59 17:59 WBC 9.4 (3.8-10.6) k/uL RBC 4.13 (3.80-5.40) m/uL Hgb 12.6 (11.4-16.0) gm/dL Hct 37.4 (34.0-46.0) % MCV 90.6 (80.0-100.0) fL MCH 30.5 (25.0-35.0) pg MCHC 33.6 (31.0-37.0) g/dL RDW 12.4 (11.5-15.5) % Plt Count 319 (150-450) k/uL MPV 7.1 Sodium 138 (137-145) mmol/L Potassium 3.7 (3.5-5.1) mmol/L Chloride 103 (98-107) mmol/L Carbon Dioxide 24 (22-30) mmol/L Anion Gap 11 mmol/L BUN 12 (7-17) mg/dL Creatinine 0.57 (0.52-1.04) mg/dL Est GFR (CKD-EPI)AfAm >90 (>60 ml/min/1.73 sqM) Est GFR (CKD-EPI)NonAf >90 (>60 ml/min/1.73 sqM) Glucose 82 (74-99) mg/dL Plasma Lactic Acid [place] 0.7 (0.7-2.0) mmol/L Calcium 9.8 (8.4-10.2) mg/dL Total Bilirubin 0.7 (0.2-1.3) mg/dL AST 23 (14-36) U/L ALT 21 (4-34) U/L Alkaline Phosphatase 65 (38-126) U/L Total Protein 7.7 (6.3-8.2) g/dL Albumin 4.9 (3.5-5.0) g/dL - Radiology Data Radiology results: report reviewed, image reviewed Disposition Clinical Impression: Tooth pain Disposition: HOME SELF-CARE Condition: Stable Instructions (If sedation given, give patient instructions): Toothache (ED) Additional Instructions: Please return to the Emergency Department if symptoms worsen or any other concerns. Please follow-up with a dentist in the next 1-2 days. Please continue to take prescribed clindamycin. Is patient prescribed a controlled substance at d/c from ED?: No Referrals: Sagrario Hassan MD [Primary Care Provider] - 1-2 days Froylan Dolan DDS [STAFF PHYSICIAN] - 1-2 days Time of Disposition: 19:26
[2023-06-15 16:45] VITALS: TEMP 98.6
[2023-06-15] MEDS ORDERED: KETOROLAC 15 MG/ML 1 ML VIAL IVP STA (17:46)
[2023-06-15] MEDS ORDERED: ONDANSETRON 4 MG/2 ML VIAL IVP STA (17:46)
[2023-06-15 18:30] LABS: HCT 37.4 % (34.0-46.0); HGB 12.6 gm/dL (11.4-16.0); MCH 30.5 pg (25.0-35.0); MCHC 33.6 g/dL (31.0-37.0); MCV 90.6 fL (80.0-100.0); Mean Platelet Volume 7.1; Platelet Count 319 k/uL (150-450); RBC 4.13 m/uL (3.80-5.40); RDW 12.4 % (11.5-15.5); WBC 9.4 k/uL (3.8-10.6)
[2023-06-15 18:50] LABS: ALT 21 U/L (4-34); AST 23 U/L (14-36); African American GFR (CKD) >90 (>60 ml/min/1.73 sqM); Albumin 4.9 g/dL (3.5-5.0); Alkaline Phosphatase 65 U/L (38-126); Anion Gap 11 mmol/L; Blood Urea Nitrogen 12 mg/dL (7-17); Calcium 9.8 mg/dL (8.4-10.2); Carbon Dioxide 24 mmol/L (22-30); Chloride 103 mmol/L (98-107); Glucose 82 mg/dL (74-99); Non-African American GFR(CKD) >90 (>60 ml/min/1.73 sqM); Potassium 3.7 mmol/L (3.5-5.1); Sodium 138 mmol/L (137-145); Total Bilirubin 0.7 mg/dL (0.2-1.3); Total Protein 7.7 g/dL (6.3-8.2)
--- NOTE | 2023-06-15 19:19 | CT ---
EXAMINATION TYPE: CT soft tissue neck w con CT DLP: 283.4 mGycm, Automated exposure control for dose reduction was used. DATE OF EXAM: 06/15/2023 7:06 PM COMPARISON: None. CLINICAL INDICATION:Female, 27 years old with history of pain; PHH, Tooth infection. TECHNIQUE: Standard enhanced CT of the neck. Axial sections with coronal and sagittal reformats were obtained. Contrast used:100 ml mL of Isovue 300 with IV Contrast, (None if empty) Oral contrast used: (None if empty) FINDINGS: Brain: Visualized portions are grossly unremarkable. Orbits: Unremarkable Sinuses: Grossly unremarkable. Spaces of the neck: Clear and symmetric. Musculoskeletal: No acute osseous pathology. Lymph nodes: Multiple nonenlarged lymph nodes are seen along both anterior chains of the neck. Vascular structures: Visualized major arteries are patent without evidence of aneurysm. Thoracic Inlet/airway: Airway is patent. The lung apices are clear. Soft tissues/Thyroid: Thyroid and remainder of the soft tissues are unremarkable. Other: none. IMPRESSION No evidence for organizing fluid collection suggest abscess. Periodontal disease versus within the bi lateral molars.
[2023-06-15] MEDS ORDERED: ACET/COD 300 MG/30 MG STARTER PACK 6 TAB BTL PO STA (19:27)
[2023-06-15 20:05] VITALS: BP 129/87; PULSE 69; RESP 18
== END 2023-06-15 19:47 | disposition home or self-care (01) ==
LOC: EC 16:02
DX: K04.7 Periapical abscess without sinus (principal); F32.A Depression, unspecified; F41.9 Anxiety disorder, unspecified; F17.200 Nicotine dependence, unspecified, uncomplicated; Z79.899 Other long term (current) drug therapy; Z88.0 Allergy status to penicillin; Z91.011 Allergy to milk products
CPT/HCPCS: 36415; 80053; 83605; 85027; 70491; 99284; 96374; 96375; J2405; J1885; Q9967